=== PATIENT | male | born 1955 | race African-American/Black ===

== ENCOUNTER 2021-07-01 14:43 | Inpatient (IN) | payer OTHER ==
[2021-07-01] MEDS ORDERED: ONDANSETRON *ODT* 4 MG TABLET SL PRN (17:24)
[2021-07-01] MEDS ORDERED: MAG HYDROX/AL HYDROX/SIMETH 30 ML UNIT-DOSE CUP PO PRN (17:24)
[2021-07-01] MEDS ORDERED: MAGNESIUM HYDROX 2400MG/30ML ORAL SUSPENSION 30 ML CUP PO PRN (17:24)
[2021-07-01] MEDS ORDERED: IBUPROFEN 400 MG TABLET (FP) PO PRN (17:24)
[2021-07-01] MEDS ORDERED: MAGNESIUM CITRATE 300 ML BOTTLE PO PRN (17:24)
[2021-07-01] MEDS ORDERED: BISMUTH SUBSALICYLATE 524 MG/30 ML PO PRN (17:24)
[2021-07-01] MEDS ORDERED: MENTHOL/PHENOL 1 EACH UD MM PRN (17:24)
[2021-07-01] MEDS ORDERED: ACETAMINOPHEN 325 MG TABLET (FP) PO PRN ×2 (17:24)
[2021-07-01 19:28] VITALS: BMI 24.5
[2021-07-02] MEDS: THIAMINE HCL 100 MG TABLET (FP) PO SCH ×2 (02:13→22:27)
[2021-07-02] MEDS: MELATONIN 5 MG TABLETS PO SCH ×2 (02:14→22:26)
[2021-07-02] MEDS: PRENATAL VITAMINS W/ FOLIC ACID TABLET (FP) PO SCH (10:19)
[2021-07-02] MEDS: LORazepam 0.5 MG TABLET PO SCH ×3 (11:16→22:27)
[2021-07-02 13:07] LABS: HEMATOCRIT 39.4 % (35.4-49); HEMOGLOBIN 12.7 GM/dL (11.7-16.9); MCH 30.6 pg (25.7-33.7); MCHC 32.2 g/dl (32.0-35.9); MEAN CELL VOLUME 94.8 fl (80-96); MEAN PLT VOLUME 9.5 fl (7.5-11.1); PLATELET COUNT 289 10^3/uL (134-434); RBC 4.16 M/mm3 (4.00-5.60); RDW 14.2 % (11.9-15.9); WHITE BLOOD COUNT 4.8 K/mm3 (4.0-10.0)
[2021-07-02 13:20] LABS: BLOOD UREA NITROGEN 17.4 mg/dL (7-18); CREATININE 0.9 mg/dL (0.55-1.3)
[2021-07-02 13:21] LABS: BILIRUBIN,TOTAL 0.4 mg/dL (0.2-1); TOT PROT 6.4 g/dl (6.4-8.2)
[2021-07-02 13:22] LABS: CALCIUM 9.2 mg/dL (8.5-10.1)
[2021-07-02] MEDS: risperiDONE 2 MG TABLET PO SCH ×2 (15:08→22:27)
[2021-07-02] MEDS: BENZTROPINE MESYLATE 1 MG TABLET PO SCH (22:26)
[2021-07-02] MEDS: DIVALPROEX SODIUM 500 MG TABLET E.C. PO SCH (22:27)
[2021-07-02] MEDS: hydrOXYzine PAMOATE 25 MG CAPSULE (FP) PO PRN (22:29)
[2021-07-03] MEDS: LORazepam 0.5 MG TABLET PO SCH ×3 (05:52→23:46)
[2021-07-03] MEDS: PRENATAL VITAMINS W/ FOLIC ACID TABLET (FP) PO SCH (10:12)
[2021-07-03] MEDS: risperiDONE 2 MG TABLET PO SCH ×2 (10:13→22:14)
[2021-07-03] MEDS: hydrOXYzine PAMOATE 25 MG CAPSULE (FP) PO PRN ×3 (10:13→22:18)
[2021-07-03] MEDS: BENZTROPINE MESYLATE 1 MG TABLET PO SCH ×2 (10:13→22:15)
[2021-07-03] MEDS: METHOCARBAMOL 500 MG TABLET PO PRN (10:13)
[2021-07-03] MEDS: LORazepam 0.5 MG TABLET PO PRN ×2 (10:14→22:15)
[2021-07-03] MEDS: DIVALPROEX SODIUM 500 MG TABLET E.C. PO SCH (22:14)
[2021-07-03] MEDS: MELATONIN 5 MG TABLETS PO SCH (22:15)
[2021-07-03] MEDS: THIAMINE HCL 100 MG TABLET (FP) PO SCH (22:15)
[2021-07-04] MEDS: LORazepam 0.5 MG TABLET PO SCH ×2 (06:05→18:32)
[2021-07-04] MEDS: risperiDONE 2 MG TABLET PO SCH ×2 (10:35→22:34)
[2021-07-04] MEDS: PRENATAL VITAMINS W/ FOLIC ACID TABLET (FP) PO SCH (10:35)
[2021-07-04] MEDS: hydrOXYzine PAMOATE 25 MG CAPSULE (FP) PO PRN (10:36)
[2021-07-04] MEDS: BENZTROPINE MESYLATE 1 MG TABLET PO SCH ×2 (10:36→22:34)
[2021-07-04] MEDS: METHOCARBAMOL 500 MG TABLET PO PRN (10:36)
[2021-07-04] MEDS: DIVALPROEX SODIUM 500 MG TABLET E.C. PO SCH (22:35)
[2021-07-04] MEDS: THIAMINE HCL 100 MG TABLET (FP) PO SCH (22:35)
[2021-07-04] MEDS: MELATONIN 5 MG TABLETS PO SCH (22:35)
[2021-07-05] MEDS ORDERED: LORazepam 0.5 MG TABLET PO ONE (05:00)
[2021-07-05] MEDS: hydrOXYzine PAMOATE 25 MG CAPSULE (FP) PO PRN (10:31)
[2021-07-05] MEDS: BENZTROPINE MESYLATE 1 MG TABLET PO SCH (10:31)
[2021-07-05] MEDS: PRENATAL VITAMINS W/ FOLIC ACID TABLET (FP) PO SCH (10:31)
[2021-07-05] MEDS: METHOCARBAMOL 500 MG TABLET PO PRN (10:31)
[2021-07-05] MEDS: risperiDONE 2 MG TABLET PO SCH (10:32)
[2021-07-05 11:15] VITALS: BP 120/80; PULSE 94; TEMP 96.6
== END 2021-07-05 12:47 | disposition home or self-care (01) | DRG 774 ==
LOC: YASAS 14:43 → Y6N 20:41
PROVIDERS: ADMIT Allergy & Immunology; ATTEND Allergy & Immunology
PROC: HZ2ZZZZ Detoxification Services for Substance Abuse Treatment (ICD-10-PCS; principal; 2021-07-01)
DX: F10.230 Alcohol dependence with withdrawal, uncomplicated (principal); F14.20 Cocaine dependence, uncomplicated; F12.20 Cannabis dependence, uncomplicated; F17.213 Nicotine dependence, cigarettes, with withdrawal; F25.0 Schizoaffective disorder, bipolar type; Z62.810 Personal history of physical and sexual abuse in childhood; Z86.69 Personal history of other diseases of the nervous system and sense organs; Z56.0 Unemployment, unspecified
CPT/HCPCS: 36415; 80053; 85027; 86780; C9803; U0003; U0005

== ENCOUNTER 2021-10-19 17:08 | Inpatient (IN) | payer OTHER ==
[2021-10-19 20:03] VITALS: BMI 25.5
[2021-10-19] MEDS ORDERED: P-EPHED 60MG/TRIPROLIDI 2.5MG TABLET PO PRN (21:28)
[2021-10-19] MEDS ORDERED: MAG HYDROX/AL HYDROX/SIMETH 30 ML UNIT-DOSE CUP PO PRN (21:28)
[2021-10-19] MEDS ORDERED: MAGNESIUM CITRATE 300 ML BOTTLE PO PRN (21:28)
[2021-10-19] MEDS ORDERED: LOPERAMIDE HCL 2 MG CAPSULE PO PRN (21:28)
[2021-10-19] MEDS ORDERED: ONDANSETRON *ODT* 4 MG TABLET SL PRN (21:28)
[2021-10-19] MEDS ORDERED: ACETAMINOPHEN 325 MG TABLET (FP) PO PRN ×2 (21:28)
[2021-10-19] MEDS ORDERED: DICYCLOMINE HCL 10 MG CAPSULE PO PRN (21:28)
[2021-10-19] MEDS ORDERED: IBUPROFEN 400 MG TABLET (FP) PO PRN (21:28)
[2021-10-19] MEDS ORDERED: BENZOCAINE/MENTHOL (CHLORASEPTIC ) LOZENGE MM PRN (21:28)
[2021-10-19] MEDS ORDERED: MAGNESIUM HYDROX 2400MG/30ML ORAL SUSPENSION 30 ML CUP PO PRN (21:28)
[2021-10-19] MEDS ORDERED: BISMUTH SUBSALICYLATE 524 MG/30 ML PO PRN (21:28)
[2021-10-19] MEDS ORDERED: guaiFENesin 200 MG/10 ML 10 ML UNIT-DOSE CUPS PO PRN (21:28)
[2021-10-19] MEDS ORDERED: CALAMINE 8% TOPICAL LOTION 177 ML BOTTLE TP PRN (21:33)
[2021-10-20] MEDS: THIAMINE HCL 100 MG TABLET (FP) PO SCH ×2 (01:36→22:28)
[2021-10-20] MEDS: METHOCARBAMOL 500 MG TABLET PO PRN (03:15)
[2021-10-20] MEDS: MELATONIN 5 MG TABLETS PO PRN ×2 (03:16→22:28)
[2021-10-20] MEDS: hydrOXYzine PAMOATE 25 MG CAPSULE (FP) PO PRN ×4 (03:16→22:28)
[2021-10-20] MEDS ORDERED: LORazepam 1 MG TABLET PO PRN (09:20)
[2021-10-20] MEDS: PRENATAL VITAMINS W/ FOLIC ACID TABLET (FP) PO SCH (10:25)
[2021-10-20] MEDS: LORazepam 2 MG TABLET PO SCH ×3 (10:27→22:28)
[2021-10-20 11:32] LABS: HEMATOCRIT 38.8 % (35.4-49); HEMOGLOBIN 12.9 GM/dL (11.7-16.9); MCHC 33.2 g/dl (32.0-35.9); MEAN CELL VOLUME 93.6 fl (80-96); MEAN PLT VOLUME 9.3 fl (7.5-11.1); PLATELET COUNT 245 10^3/uL (134-434); RBC 4.14 M/mm3 (4.00-5.60); RDW 14.5 % (11.9-15.9); WHITE BLOOD COUNT 5.2 K/mm3 (4.0-10.0)
[2021-10-20 11:46] LABS: CALCIUM 8.8 mg/dL (8.5-10.1)
[2021-10-20 11:47] LABS: ALBUMIN 2.8 g/dl (3.4-5.0)
[2021-10-20 11:48] LABS: BLOOD UREA NITROGEN 14.1 mg/dL (7-18)
[2021-10-20 11:52] LABS: BILIRUBIN,TOTAL 0.6 mg/dL (0.2-1); TOT PROT 6.2 g/dl (6.4-8.2)
[2021-10-20] MEDS: risperiDONE 2 MG TABLET PO SCH (22:28)
[2021-10-21] MEDS: LORazepam 1 MG TABLET PO SCH ×4 (05:44→22:08)
[2021-10-21] MEDS: PRENATAL VITAMINS W/ FOLIC ACID TABLET (FP) PO SCH (10:07)
[2021-10-21] MEDS: hydrOXYzine PAMOATE 25 MG CAPSULE (FP) PO PRN ×3 (10:08→22:09)
[2021-10-21] MEDS: METHOCARBAMOL 500 MG TABLET PO PRN (17:56)
[2021-10-21] MEDS: MELATONIN 5 MG TABLETS PO PRN (22:07)
[2021-10-21] MEDS: DIVALPROEX SODIUM 250 MG TABLET E.C. PO SCH (22:08)
[2021-10-21] MEDS: risperiDONE 2 MG TABLET PO SCH (22:09)
[2021-10-21] MEDS: THIAMINE HCL 100 MG TABLET (FP) PO SCH (22:10)
[2021-10-22] MEDS ORDERED: LORazepam 0.5 MG TABLET PO PRN
[2021-10-22] MEDS: METHOCARBAMOL 500 MG TABLET PO PRN (05:42)
[2021-10-22] MEDS: LORazepam 0.5 MG TABLET PO SCH ×4 (05:42→22:10)
[2021-10-22] MEDS: DIVALPROEX SODIUM 250 MG TABLET E.C. PO SCH ×2 (10:17→22:09)
[2021-10-22] MEDS: PRENATAL VITAMINS W/ FOLIC ACID TABLET (FP) PO SCH (10:17)
[2021-10-22] MEDS: hydrOXYzine PAMOATE 25 MG CAPSULE (FP) PO PRN ×2 (18:11→22:09)
[2021-10-22 20:08] LABS: SARS-CoV-2 NAA Not Detected (Not Detected)
[2021-10-22] MEDS: MELATONIN 5 MG TABLETS PO PRN (22:09)
[2021-10-22] MEDS: THIAMINE HCL 100 MG TABLET (FP) PO SCH (22:09)
[2021-10-22] MEDS: risperiDONE 2 MG TABLET PO SCH (22:09)
[2021-10-23] MEDS ORDERED: LORazepam 0.5 MG TABLET PO ONE (05:00)
[2021-10-23 07:41] VITALS: TEMP 96.9
[2021-10-23 09:51] VITALS: BP 104/68; PULSE 106
[2021-10-23] MEDS: DIVALPROEX SODIUM 250 MG TABLET E.C. PO SCH (10:35)
[2021-10-23] MEDS: PRENATAL VITAMINS W/ FOLIC ACID TABLET (FP) PO SCH (10:35)
== END 2021-10-23 11:40 | disposition other institution (70) | DRG 775 ==
LOC: YASAS 17:08 → Y6N 22:20
PROVIDERS: ADMIT Allergy & Immunology; ATTEND Allergy & Immunology
PROC: HZ2ZZZZ Detoxification Services for Substance Abuse Treatment (ICD-10-PCS; principal; 2021-10-19)
DX: F10.230 Alcohol dependence with withdrawal, uncomplicated (principal); F12.20 Cannabis dependence, uncomplicated; F17.210 Nicotine dependence, cigarettes, uncomplicated; F19.282 Other psychoactive substance dependence with psychoactive substance-induced sleep disorder; F20.9 Schizophrenia, unspecified; R21 Rash and other nonspecific skin eruption; Z62.810 Personal history of physical and sexual abuse in childhood
CPT/HCPCS: 36415; 71045-TC-FY; 80053; 85027; 86780; C9803-CS; U0003; U0005

== ENCOUNTER 2021-10-23 12:34 | Inpatient (IN) | payer OTHER ==
[2021-10-23] MEDS ORDERED: MAGNESIUM HYDROX 2400MG/30ML ORAL SUSPENSION 30 ML CUP PO PRN (15:19)
[2021-10-23] MEDS ORDERED: BENZOCAINE/MENTHOL (CHLORASEPTIC ) LOZENGE MM PRN (15:19)
[2021-10-23] MEDS ORDERED: LOPERAMIDE HCL 2 MG CAPSULE PO PRN (15:19)
[2021-10-23] MEDS ORDERED: IBUPROFEN 400 MG TABLET (FP) PO PRN (15:19)
[2021-10-23] MEDS ORDERED: MAGNESIUM CITRATE 300 ML BOTTLE PO PRN (15:19)
[2021-10-23] MEDS ORDERED: P-EPHED 60MG/TRIPROLIDI 2.5MG TABLET PO PRN (15:19)
[2021-10-23] MEDS ORDERED: ACETAMINOPHEN 325 MG TABLET (FP) PO PRN (15:19)
[2021-10-23] MEDS: guaiFENesin 200 MG/10 ML 10 ML UNIT-DOSE CUPS PO PRN (17:15)
[2021-10-23] MEDS: hydrOXYzine PAMOATE 25 MG CAPSULE (FP) PO PRN ×2 (17:15→21:29)
[2021-10-23] MEDS: DIVALPROEX SODIUM 250 MG TABLET E.C. PO SCH (21:28)
[2021-10-23] MEDS: risperiDONE 2 MG TABLET PO SCH (21:29)
[2021-10-23] MEDS: MELATONIN 5 MG TABLETS PO SCH (21:29)
[2021-10-23] MEDS: THIAMINE HCL 100 MG TABLET (FP) PO SCH (21:29)
[2021-10-24] MEDS: PRENATAL VITAMINS W/ FOLIC ACID TABLET (FP) PO SCH (10:01)
[2021-10-24] MEDS: DIVALPROEX SODIUM 250 MG TABLET E.C. PO SCH ×2 (10:01→21:18)
[2021-10-24] MEDS: guaiFENesin 200 MG/10 ML 10 ML UNIT-DOSE CUPS PO PRN ×2 (10:02→21:19)
[2021-10-24] MEDS: hydrOXYzine PAMOATE 25 MG CAPSULE (FP) PO PRN (10:03)
[2021-10-24] MEDS: MELATONIN 5 MG TABLETS PO SCH (21:18)
[2021-10-24] MEDS: THIAMINE HCL 100 MG TABLET (FP) PO SCH (21:18)
[2021-10-24] MEDS: risperiDONE 2 MG TABLET PO SCH (21:18)
[2021-10-25] MEDS: PRENATAL VITAMINS W/ FOLIC ACID TABLET (FP) PO SCH (10:24)
[2021-10-25] MEDS: DIVALPROEX SODIUM 250 MG TABLET E.C. PO SCH ×2 (10:24→21:23)
[2021-10-25] MEDS: guaiFENesin 200 MG/10 ML 10 ML UNIT-DOSE CUPS PO PRN ×2 (10:26→18:37)
[2021-10-25] MEDS: hydrOXYzine PAMOATE 25 MG CAPSULE (FP) PO PRN ×2 (10:26→21:23)
[2021-10-25] MEDS: THIAMINE HCL 100 MG TABLET (FP) PO SCH (21:22)
[2021-10-25] MEDS: risperiDONE 2 MG TABLET PO SCH (21:22)
[2021-10-25] MEDS: MELATONIN 5 MG TABLETS PO SCH (21:22)
[2021-10-26] MEDS: DIVALPROEX SODIUM 250 MG TABLET E.C. PO SCH ×2 (09:54→21:41)
[2021-10-26] MEDS: PRENATAL VITAMINS W/ FOLIC ACID TABLET (FP) PO SCH (09:54)
[2021-10-26] MEDS: hydrOXYzine PAMOATE 25 MG CAPSULE (FP) PO PRN ×2 (09:57→21:42)
[2021-10-26] MEDS: guaiFENesin 200 MG/10 ML 10 ML UNIT-DOSE CUPS PO PRN ×2 (09:57→21:43)
[2021-10-26] MEDS: risperiDONE 2 MG TABLET PO SCH (21:41)
[2021-10-26] MEDS: THIAMINE HCL 100 MG TABLET (FP) PO SCH (21:42)
[2021-10-26] MEDS: MELATONIN 5 MG TABLETS PO SCH (21:42)
[2021-10-27] MEDS: PRENATAL VITAMINS W/ FOLIC ACID TABLET (FP) PO SCH (10:16)
[2021-10-27] MEDS: guaiFENesin 200 MG/10 ML 10 ML UNIT-DOSE CUPS PO PRN ×2 (10:16→21:35)
[2021-10-27] MEDS: DIVALPROEX SODIUM 250 MG TABLET E.C. PO SCH ×2 (10:16→21:34)
[2021-10-27] MEDS: hydrOXYzine PAMOATE 25 MG CAPSULE (FP) PO PRN ×2 (10:16→21:35)
[2021-10-27 14:09] LABS: SARS-CoV-2 NAA Not Detected (Not Detected)
[2021-10-27] MEDS: THIAMINE HCL 100 MG TABLET (FP) PO SCH (21:33)
[2021-10-27] MEDS: MELATONIN 5 MG TABLETS PO SCH (21:33)
[2021-10-27] MEDS: risperiDONE 2 MG TABLET PO SCH (21:34)
[2021-10-28] MEDS: guaiFENesin 200 MG/10 ML 10 ML UNIT-DOSE CUPS PO PRN ×2 (09:57→21:21)
[2021-10-28] MEDS: PRENATAL VITAMINS W/ FOLIC ACID TABLET (FP) PO SCH (09:57)
[2021-10-28] MEDS: hydrOXYzine PAMOATE 25 MG CAPSULE (FP) PO PRN ×2 (09:57→21:21)
[2021-10-28] MEDS: DIVALPROEX SODIUM 250 MG TABLET E.C. PO SCH ×2 (09:58→21:20)
[2021-10-28] MEDS ORDERED: HALOPERIDOL DECANOATE 500 MG/5ML MDV IM ONE (11:18)
[2021-10-28] MEDS ORDERED: BENZTROPINE MESYLATE 1 MG TABLET PO ONE (11:19)
[2021-10-28] MEDS: risperiDONE 2 MG TABLET PO SCH (21:20)
[2021-10-28] MEDS: MELATONIN 5 MG TABLETS PO SCH (21:20)
[2021-10-28] MEDS: THIAMINE HCL 100 MG TABLET (FP) PO SCH (21:20)
[2021-10-28] MEDS: BENZTROPINE MESYLATE 1 MG TABLET PO SCH (21:21)
[2021-10-29] MEDS: guaiFENesin 200 MG/10 ML 10 ML UNIT-DOSE CUPS PO PRN ×2 (10:14→21:57)
[2021-10-29] MEDS: PRENATAL VITAMINS W/ FOLIC ACID TABLET (FP) PO SCH (10:14)
[2021-10-29] MEDS: BENZTROPINE MESYLATE 1 MG TABLET PO SCH ×2 (10:15→21:55)
[2021-10-29] MEDS: NALTREXONE HCL 50 MG TABLET PO SCH (10:15)
[2021-10-29] MEDS: hydrOXYzine PAMOATE 25 MG CAPSULE (FP) PO PRN (10:15)
[2021-10-29] MEDS: DIVALPROEX SODIUM 250 MG TABLET E.C. PO SCH ×2 (10:15→21:54)
[2021-10-29] MEDS: risperiDONE 2 MG TABLET PO SCH (21:55)
[2021-10-29] MEDS: MELATONIN 5 MG TABLETS PO SCH (21:55)
[2021-10-29] MEDS: THIAMINE HCL 100 MG TABLET (FP) PO SCH (21:55)
[2021-10-30] MEDS: NALTREXONE HCL 50 MG TABLET PO SCH (09:16)
[2021-10-30] MEDS: PRENATAL VITAMINS W/ FOLIC ACID TABLET (FP) PO SCH (09:16)
[2021-10-30] MEDS: BENZTROPINE MESYLATE 1 MG TABLET PO SCH ×2 (09:16→21:12)
[2021-10-30] MEDS: DIVALPROEX SODIUM 250 MG TABLET E.C. PO SCH ×2 (09:16→21:11)
[2021-10-30] MEDS: guaiFENesin 200 MG/10 ML 10 ML UNIT-DOSE CUPS PO PRN (09:19)
[2021-10-30] MEDS: MELATONIN 5 MG TABLETS PO SCH (21:11)
[2021-10-30] MEDS: risperiDONE 2 MG TABLET PO SCH (21:11)
[2021-10-30] MEDS: THIAMINE HCL 100 MG TABLET (FP) PO SCH (21:11)
[2021-10-31] MEDS: PRENATAL VITAMINS W/ FOLIC ACID TABLET (FP) PO SCH (10:54)
[2021-10-31] MEDS: guaiFENesin 200 MG/10 ML 10 ML UNIT-DOSE CUPS PO PRN ×2 (10:55→21:29)
[2021-10-31] MEDS: BENZTROPINE MESYLATE 1 MG TABLET PO SCH ×2 (10:55→21:27)
[2021-10-31] MEDS: DIVALPROEX SODIUM 250 MG TABLET E.C. PO SCH ×2 (10:55→21:27)
[2021-10-31] MEDS: NALTREXONE HCL 50 MG TABLET PO SCH (10:55)
[2021-10-31] MEDS: MELATONIN 5 MG TABLETS PO SCH (21:27)
[2021-10-31] MEDS: risperiDONE 2 MG TABLET PO SCH (21:27)
[2021-10-31] MEDS: THIAMINE HCL 100 MG TABLET (FP) PO SCH (21:28)
[2021-11-01] MEDS: DIVALPROEX SODIUM 250 MG TABLET E.C. PO SCH ×2 (10:12→21:39)
[2021-11-01] MEDS: NALTREXONE HCL 50 MG TABLET PO SCH (10:13)
[2021-11-01] MEDS: guaiFENesin 200 MG/10 ML 10 ML UNIT-DOSE CUPS PO PRN ×2 (10:13→21:40)
[2021-11-01] MEDS: BENZTROPINE MESYLATE 1 MG TABLET PO SCH ×2 (10:13→21:38)
[2021-11-01] MEDS: PRENATAL VITAMINS W/ FOLIC ACID TABLET (FP) PO SCH (10:13)
[2021-11-01] MEDS: hydrOXYzine PAMOATE 25 MG CAPSULE (FP) PO PRN ×2 (10:15→21:40)
[2021-11-01] MEDS: risperiDONE 2 MG TABLET PO SCH (21:39)
[2021-11-01] MEDS: MELATONIN 5 MG TABLETS PO SCH (21:39)
[2021-11-01] MEDS: THIAMINE HCL 100 MG TABLET (FP) PO SCH (21:39)
[2021-11-02] MEDS: MAG HYDROX/AL HYDROX/SIMETH 30 ML UNIT-DOSE CUP PO PRN (03:14)
[2021-11-02] MEDS: NALTREXONE HCL 50 MG TABLET PO SCH (10:15)
[2021-11-02] MEDS: DIVALPROEX SODIUM 250 MG TABLET E.C. PO SCH ×2 (10:15→21:40)
[2021-11-02] MEDS: PRENATAL VITAMINS W/ FOLIC ACID TABLET (FP) PO SCH (10:15)
[2021-11-02] MEDS: BENZTROPINE MESYLATE 1 MG TABLET PO SCH ×2 (10:15→21:40)
[2021-11-02] MEDS: hydrOXYzine PAMOATE 25 MG CAPSULE (FP) PO PRN (10:15)
[2021-11-02] MEDS: guaiFENesin 200 MG/10 ML 10 ML UNIT-DOSE CUPS PO PRN ×2 (10:15→21:42)
[2021-11-02] MEDS: risperiDONE 2 MG TABLET PO SCH (21:40)
[2021-11-02] MEDS: MELATONIN 5 MG TABLETS PO SCH (21:41)
[2021-11-02] MEDS: THIAMINE HCL 100 MG TABLET (FP) PO SCH (21:41)
[2021-11-03] MEDS: PRENATAL VITAMINS W/ FOLIC ACID TABLET (FP) PO SCH (10:02)
[2021-11-03] MEDS: NALTREXONE HCL 50 MG TABLET PO SCH (10:02)
[2021-11-03] MEDS: DIVALPROEX SODIUM 250 MG TABLET E.C. PO SCH ×2 (10:02→21:27)
[2021-11-03] MEDS: BENZTROPINE MESYLATE 1 MG TABLET PO SCH ×2 (10:02→21:27)
[2021-11-03] MEDS: MELATONIN 5 MG TABLETS PO SCH (21:27)
[2021-11-03] MEDS: THIAMINE HCL 100 MG TABLET (FP) PO SCH (21:27)
[2021-11-03] MEDS: risperiDONE 2 MG TABLET PO SCH (21:27)
[2021-11-03] MEDS: guaiFENesin 200 MG/10 ML 10 ML UNIT-DOSE CUPS PO PRN (21:28)
[2021-11-04] MEDS: PRENATAL VITAMINS W/ FOLIC ACID TABLET (FP) PO SCH (10:26)
[2021-11-04] MEDS: NALTREXONE HCL 50 MG TABLET PO SCH (10:26)
[2021-11-04] MEDS: guaiFENesin 200 MG/10 ML 10 ML UNIT-DOSE CUPS PO PRN ×2 (10:27→21:29)
[2021-11-04] MEDS: DIVALPROEX SODIUM 250 MG TABLET E.C. PO SCH ×2 (10:27→21:28)
[2021-11-04] MEDS: BENZTROPINE MESYLATE 1 MG TABLET PO SCH ×2 (10:27→21:27)
[2021-11-04] MEDS: risperiDONE 2 MG TABLET PO SCH (21:27)
[2021-11-04] MEDS: MELATONIN 5 MG TABLETS PO SCH (21:28)
[2021-11-04] MEDS: THIAMINE HCL 100 MG TABLET (FP) PO SCH (21:29)
[2021-11-04] MEDS: MAG HYDROX/AL HYDROX/SIMETH 30 ML UNIT-DOSE CUP PO PRN (23:49)
[2021-11-05] MEDS: guaiFENesin 200 MG/10 ML 10 ML UNIT-DOSE CUPS PO PRN (10:17)
[2021-11-05] MEDS: PRENATAL VITAMINS W/ FOLIC ACID TABLET (FP) PO SCH (10:17)
[2021-11-05] MEDS: BENZTROPINE MESYLATE 1 MG TABLET PO SCH ×2 (10:17→21:25)
[2021-11-05] MEDS: NALTREXONE HCL 50 MG TABLET PO SCH (10:17)
[2021-11-05] MEDS: DIVALPROEX SODIUM 250 MG TABLET E.C. PO SCH ×2 (10:17→21:25)
[2021-11-05] MEDS: hydrOXYzine PAMOATE 25 MG CAPSULE (FP) PO PRN (10:17)
[2021-11-05] MEDS: risperiDONE 2 MG TABLET PO SCH (21:24)
[2021-11-05] MEDS: MELATONIN 5 MG TABLETS PO SCH (21:24)
[2021-11-05] MEDS: THIAMINE HCL 100 MG TABLET (FP) PO SCH (21:25)
[2021-11-06] MEDS: DIVALPROEX SODIUM 250 MG TABLET E.C. PO SCH ×2 (10:46→21:33)
[2021-11-06] MEDS: BENZTROPINE MESYLATE 1 MG TABLET PO SCH ×2 (10:46→21:32)
[2021-11-06] MEDS: hydrOXYzine PAMOATE 25 MG CAPSULE (FP) PO PRN (10:46)
[2021-11-06] MEDS: PRENATAL VITAMINS W/ FOLIC ACID TABLET (FP) PO SCH (10:46)
[2021-11-06] MEDS: NALTREXONE HCL 50 MG TABLET PO SCH (10:46)
[2021-11-06] MEDS: guaiFENesin 200 MG/10 ML 10 ML UNIT-DOSE CUPS PO PRN (10:47)
[2021-11-06] MEDS: risperiDONE 2 MG TABLET PO SCH (21:32)
[2021-11-06] MEDS: THIAMINE HCL 100 MG TABLET (FP) PO SCH (21:33)
[2021-11-06] MEDS: MELATONIN 5 MG TABLETS PO SCH (21:33)
[2021-11-07] MEDS: BENZTROPINE MESYLATE 1 MG TABLET PO SCH ×2 (09:20→21:03)
[2021-11-07] MEDS: DIVALPROEX SODIUM 250 MG TABLET E.C. PO SCH ×2 (09:20→21:03)
[2021-11-07] MEDS: NALTREXONE HCL 50 MG TABLET PO SCH (09:20)
[2021-11-07] MEDS: PRENATAL VITAMINS W/ FOLIC ACID TABLET (FP) PO SCH (09:20)
[2021-11-07] MEDS: guaiFENesin 200 MG/10 ML 10 ML UNIT-DOSE CUPS PO PRN (09:21)
[2021-11-07] MEDS: hydrOXYzine PAMOATE 25 MG CAPSULE (FP) PO PRN (09:21)
[2021-11-07] MEDS: THIAMINE HCL 100 MG TABLET (FP) PO SCH (21:03)
[2021-11-07] MEDS: MELATONIN 5 MG TABLETS PO SCH (21:03)
[2021-11-07] MEDS: risperiDONE 2 MG TABLET PO SCH (21:03)
[2021-11-07] MEDS: MAG HYDROX/AL HYDROX/SIMETH 30 ML UNIT-DOSE CUP PO PRN (23:31)
[2021-11-08] MEDS: BENZTROPINE MESYLATE 1 MG TABLET PO SCH ×2 (09:33→21:46)
[2021-11-08] MEDS: DIVALPROEX SODIUM 250 MG TABLET E.C. PO SCH ×2 (09:33→21:46)
[2021-11-08] MEDS: NALTREXONE HCL 50 MG TABLET PO SCH (09:33)
[2021-11-08] MEDS: PRENATAL VITAMINS W/ FOLIC ACID TABLET (FP) PO SCH (09:33)
[2021-11-08] MEDS: guaiFENesin 200 MG/10 ML 10 ML UNIT-DOSE CUPS PO PRN (09:33)
[2021-11-08] MEDS: hydrOXYzine PAMOATE 25 MG CAPSULE (FP) PO PRN (09:34)
[2021-11-08] MEDS: risperiDONE 2 MG TABLET PO SCH (21:46)
[2021-11-08] MEDS: MELATONIN 5 MG TABLETS PO SCH (21:46)
[2021-11-08] MEDS: THIAMINE HCL 100 MG TABLET (FP) PO SCH (21:46)
[2021-11-09] MEDS: MAG HYDROX/AL HYDROX/SIMETH 30 ML UNIT-DOSE CUP PO PRN ×2 (00:52→16:29)
[2021-11-09] MEDS: PRENATAL VITAMINS W/ FOLIC ACID TABLET (FP) PO SCH (10:06)
[2021-11-09] MEDS: BENZTROPINE MESYLATE 1 MG TABLET PO SCH ×2 (10:06→21:44)
[2021-11-09] MEDS: DIVALPROEX SODIUM 250 MG TABLET E.C. PO SCH ×2 (10:06→21:45)
[2021-11-09] MEDS: NALTREXONE HCL 50 MG TABLET PO SCH (10:06)
[2021-11-09] MEDS: hydrOXYzine PAMOATE 25 MG CAPSULE (FP) PO PRN (16:28)
[2021-11-09] MEDS: risperiDONE 2 MG TABLET PO SCH (21:44)
[2021-11-09] MEDS: THIAMINE HCL 100 MG TABLET (FP) PO SCH (21:45)
[2021-11-09] MEDS: MELATONIN 5 MG TABLETS PO SCH (21:45)
[2021-11-09] MEDS: guaiFENesin 200 MG/10 ML 10 ML UNIT-DOSE CUPS PO PRN (21:56)
[2021-11-10 06:47] VITALS: BP 109/75; PULSE 101; TEMP 98
[2021-11-10] MEDS: NALTREXONE HCL 50 MG TABLET PO SCH (10:28)
[2021-11-10] MEDS: DIVALPROEX SODIUM 250 MG TABLET E.C. PO SCH (10:28)
[2021-11-10] MEDS: BENZTROPINE MESYLATE 1 MG TABLET PO SCH (10:28)
[2021-11-10] MEDS: PRENATAL VITAMINS W/ FOLIC ACID TABLET (FP) PO SCH (10:28)
== END 2021-11-10 11:30 | disposition home or self-care (01) | DRG 772 ==
LOC: YASAS 12:34 → Y3W 12:35
PROVIDERS: ADMIT Allergy & Immunology; ATTEND Psychiatry & Neurology Pain Medicine
PROC: HZ42ZZZ Group Counseling for Substance Abuse Treatment, Cognitive-Behavioral (ICD-10-PCS; principal; 2021-10-23)
DX: F10.20 Alcohol dependence, uncomplicated (principal); F12.20 Cannabis dependence, uncomplicated; F17.210 Nicotine dependence, cigarettes, uncomplicated; F20.9 Schizophrenia, unspecified; F19.282 Other psychoactive substance dependence with psychoactive substance-induced sleep disorder; Z62.810 Personal history of physical and sexual abuse in childhood
CPT/HCPCS: 80164; C9803-CS; U0003; U0005

== ENCOUNTER 2021-12-13 08:09 | Inpatient (IN) | payer OTHER ==
[2021-12-13 08:53] VITALS: BMI 22.8
[2021-12-13] MEDS ORDERED: ONDANSETRON *ODT* 4 MG TABLET SL PRN (09:20)
[2021-12-13] MEDS ORDERED: IBUPROFEN 400 MG TABLET (FP) PO PRN (09:20)
[2021-12-13] MEDS ORDERED: IBUPROFEN 600 MG TABLET (FP) PO PRN (09:20)
[2021-12-13] MEDS ORDERED: NICOTINE 10 MG CARTRIDGE (INHALER) IH PRN (09:20)
[2021-12-13] MEDS ORDERED: MAG HYDROX/AL HYDROX/SIMETH 30 ML UNIT-DOSE CUP PO PRN (09:20)
[2021-12-13] MEDS ORDERED: chlordiazePOXIDE HCL 25 MG CAPSULE PO PRN (09:20)
[2021-12-13] MEDS ORDERED: ACETAMINOPHEN 325 MG TABLET (FP) PO PRN ×2 (09:20)
[2021-12-13] MEDS ORDERED: METHOCARBAMOL 500 MG TABLET PO PRN (09:20)
[2021-12-13] MEDS ORDERED: LOPERAMIDE HCL 2 MG CAPSULE PO PRN (09:20)
[2021-12-13] MEDS ORDERED: BENZOCAINE/MENTHOL (CHLORASEPTIC ) LOZENGE MM PRN (09:20)
[2021-12-13] MEDS ORDERED: MAGNESIUM HYDROX 2400MG/30ML ORAL SUSPENSION 30 ML CUP PO PRN (09:20)
[2021-12-13] MEDS ORDERED: DICYCLOMINE HCL 10 MG CAPSULE PO PRN (09:20)
[2021-12-13] MEDS ORDERED: BISMUTH SUBSALICYLATE 524 MG/30 ML PO PRN (09:20)
[2021-12-13] MEDS ORDERED: MAGNESIUM CITRATE 300 ML BOTTLE PO PRN (09:20)
[2021-12-13] MEDS: chlordiazePOXIDE HCL 25 MG CAPSULE PO SCH ×3 (10:21→22:35)
[2021-12-13] MEDS: hydrOXYzine PAMOATE 25 MG CAPSULE (FP) PO SCH ×4 (10:21→22:34)
[2021-12-13] MEDS: PRENATAL VITAMINS W/ FOLIC ACID TABLET (FP) PO SCH (10:22)
[2021-12-13] MEDS: MELATONIN 5 MG TABLETS PO SCH (22:32)
[2021-12-13] MEDS: BENZTROPINE MESYLATE 1 MG TABLET PO SCH (22:33)
[2021-12-13] MEDS: THIAMINE HCL 100 MG TABLET (FP) PO SCH (22:33)
[2021-12-13] MEDS: risperiDONE 2 MG TABLET PO SCH (22:33)
[2021-12-13] MEDS: DIVALPROEX SODIUM 250 MG TABLET E.C. PO SCH (22:33)
[2021-12-14] MEDS: chlordiazePOXIDE HCL 25 MG CAPSULE PO SCH ×4 (06:07→22:01)
[2021-12-14] MEDS: hydrOXYzine PAMOATE 25 MG CAPSULE (FP) PO SCH ×5 (06:07→22:01)
[2021-12-14] MEDS: PRENATAL VITAMINS W/ FOLIC ACID TABLET (FP) PO SCH (10:20)
[2021-12-14] MEDS: DIVALPROEX SODIUM 250 MG TABLET E.C. PO SCH ×2 (10:20→22:01)
[2021-12-14] MEDS: BENZTROPINE MESYLATE 1 MG TABLET PO SCH ×2 (10:20→22:01)
[2021-12-14] MEDS: THIAMINE HCL 100 MG TABLET (FP) PO SCH (22:01)
[2021-12-14] MEDS: MELATONIN 5 MG TABLETS PO SCH (22:01)
[2021-12-14] MEDS: risperiDONE 2 MG TABLET PO SCH (22:01)
[2021-12-15] MEDS: chlordiazePOXIDE HCL 25 MG CAPSULE PO SCH ×4 (06:02→22:43)
[2021-12-15] MEDS: hydrOXYzine PAMOATE 25 MG CAPSULE (FP) PO SCH ×5 (06:04→22:43)
[2021-12-15] MEDS: DIVALPROEX SODIUM 250 MG TABLET E.C. PO SCH ×2 (10:17→22:43)
[2021-12-15] MEDS: PRENATAL VITAMINS W/ FOLIC ACID TABLET (FP) PO SCH (10:17)
[2021-12-15] MEDS: BENZTROPINE MESYLATE 1 MG TABLET PO SCH ×2 (10:17→22:43)
[2021-12-15 14:27] LABS: HEMATOCRIT 41.4 % (35.4-49); HEMOGLOBIN 13.5 GM/dL (11.7-16.9); MCH 31.3 pg (25.7-33.7); MCHC 32.7 g/dl (32.0-35.9); MEAN CELL VOLUME 95.7 fl (80-96); MEAN PLT VOLUME 9.5 fl (7.5-11.1); PLATELET COUNT 306 10^3/uL (134-434); RBC 4.32 M/mm3 (4.00-5.60); RDW 15.1 % (11.9-15.9); WHITE BLOOD COUNT 4.7 K/mm3 (4.0-10.0)
[2021-12-15] MEDS: LACTULOSE 20 GM/30 ML UDC (FOR ORAL USE ONLY) PO SCH ×2 (16:01→22:43)
[2021-12-15 22:21] LABS: BLOOD UREA NITROGEN 19.2 mg/dL (7-18); CALCIUM 8.9 mg/dL (8.5-10.1)
[2021-12-15 22:22] LABS: ALBUMIN 3.3 g/dl (3.4-5.0)
[2021-12-15 22:24] LABS: CREATININE 1.1 mg/dL (0.55-1.3)
[2021-12-15 22:26] LABS: TOT PROT 7.4 g/dl (6.4-8.2)
[2021-12-15 22:39] LABS: BILIRUBIN,TOTAL 0.3 mg/dL (0.2-1)
[2021-12-15] MEDS: MELATONIN 5 MG TABLETS PO SCH (22:46)
[2021-12-15] MEDS: THIAMINE HCL 100 MG TABLET (FP) PO SCH (23:10)
[2021-12-15] MEDS: risperiDONE 2 MG TABLET PO SCH (23:10)
[2021-12-16] MEDS ORDERED: chlordiazePOXIDE HCL 10 MG CAPSULE PO PRN
[2021-12-16] MEDS: LACTULOSE 20 GM/30 ML UDC (FOR ORAL USE ONLY) PO SCH ×4 (07:29→23:42)
[2021-12-16] MEDS: hydrOXYzine PAMOATE 25 MG CAPSULE (FP) PO SCH ×5 (07:29→23:43)
[2021-12-16] MEDS: chlordiazePOXIDE HCL 10 MG CAPSULE PO SCH ×4 (07:30→23:42)
[2021-12-16] MEDS: BENZTROPINE MESYLATE 1 MG TABLET PO SCH ×2 (10:44→23:42)
[2021-12-16] MEDS: DIVALPROEX SODIUM 250 MG TABLET E.C. PO SCH ×2 (10:44→23:42)
[2021-12-16] MEDS: PRENATAL VITAMINS W/ FOLIC ACID TABLET (FP) PO SCH (10:45)
[2021-12-16] MEDS: MELATONIN 5 MG TABLETS PO SCH (23:42)
[2021-12-16] MEDS: THIAMINE HCL 100 MG TABLET (FP) PO SCH (23:43)
[2021-12-16] MEDS: risperiDONE 2 MG TABLET PO SCH (23:43)
[2021-12-17] MEDS: chlordiazePOXIDE HCL 10 MG CAPSULE PO SCH ×2 (06:07→17:52)
[2021-12-17] MEDS: hydrOXYzine PAMOATE 25 MG CAPSULE (FP) PO SCH ×5 (06:08→22:32)
[2021-12-17] MEDS: DIVALPROEX SODIUM 250 MG TABLET E.C. PO SCH ×2 (11:14→22:33)
[2021-12-17] MEDS: BENZTROPINE MESYLATE 1 MG TABLET PO SCH ×2 (11:15→22:33)
[2021-12-17] MEDS: PRENATAL VITAMINS W/ FOLIC ACID TABLET (FP) PO SCH (11:16)
[2021-12-17] MEDS: LACTULOSE 20 GM/30 ML UDC (FOR ORAL USE ONLY) PO SCH ×4 (11:16→22:33)
[2021-12-17] MEDS: risperiDONE 2 MG TABLET PO SCH (22:33)
[2021-12-17] MEDS: THIAMINE HCL 100 MG TABLET (FP) PO SCH (22:33)
[2021-12-17] MEDS: MELATONIN 5 MG TABLETS PO SCH (22:33)
[2021-12-18] MEDS ORDERED: chlordiazePOXIDE HCL 10 MG CAPSULE PO ONE (05:00)
[2021-12-18] MEDS: hydrOXYzine PAMOATE 25 MG CAPSULE (FP) PO SCH ×5 (07:39→22:41)
[2021-12-18] MEDS: LACTULOSE 20 GM/30 ML UDC (FOR ORAL USE ONLY) PO SCH ×4 (11:12→22:40)
[2021-12-18] MEDS: BENZTROPINE MESYLATE 1 MG TABLET PO SCH ×2 (11:12→22:41)
[2021-12-18] MEDS: DIVALPROEX SODIUM 250 MG TABLET E.C. PO SCH ×2 (11:12→22:40)
[2021-12-18] MEDS: PRENATAL VITAMINS W/ FOLIC ACID TABLET (FP) PO SCH (11:13)
[2021-12-18] MEDS: THIAMINE HCL 100 MG TABLET (FP) PO SCH (22:41)
[2021-12-18] MEDS: risperiDONE 2 MG TABLET PO SCH (22:41)
[2021-12-18] MEDS: MELATONIN 5 MG TABLETS PO SCH (22:41)
[2021-12-19] MEDS: hydrOXYzine PAMOATE 25 MG CAPSULE (FP) PO SCH (07:06)
[2021-12-19] MEDS: BENZTROPINE MESYLATE 1 MG TABLET PO SCH ×2 (11:51→22:30)
[2021-12-19] MEDS: LACTULOSE 20 GM/30 ML UDC (FOR ORAL USE ONLY) PO SCH ×4 (11:51→22:29)
[2021-12-19] MEDS: DIVALPROEX SODIUM 250 MG TABLET E.C. PO SCH ×2 (11:52→22:29)
[2021-12-19] MEDS: PRENATAL VITAMINS W/ FOLIC ACID TABLET (FP) PO SCH (11:52)
[2021-12-19 18:20] LABS: URINE APPEARANCE CLEAR; URINE BILIRUBIN NEGATIVE (NEGATIVE); URINE COLOR YELLOW; URINE GLUCOSE (UA) 2+ (NEGATIVE); URINE KETONE NEGATIVE (NEGATIVE); URINE LEUK ESTERASE NEGATIVE (NEGATIVE); URINE NITRITE NEGATIVE (NEGATIVE); URINE PROTEIN NEGATIVE (NEGATIVE); URINE UROBILINOGEN 0.2 mg/dL (0.2-1.0)
[2021-12-19] MEDS: MELATONIN 5 MG TABLETS PO SCH (22:29)
[2021-12-19] MEDS: risperiDONE 2 MG TABLET PO SCH (22:30)
[2021-12-19] MEDS: THIAMINE HCL 100 MG TABLET (FP) PO SCH (22:30)
[2021-12-20] MEDS: DIVALPROEX SODIUM 250 MG TABLET E.C. PO SCH ×2 (10:51→22:23)
[2021-12-20] MEDS: BENZTROPINE MESYLATE 1 MG TABLET PO SCH ×2 (10:51→22:23)
[2021-12-20] MEDS: PRENATAL VITAMINS W/ FOLIC ACID TABLET (FP) PO SCH (10:51)
[2021-12-20] MEDS: LACTULOSE 20 GM/30 ML UDC (FOR ORAL USE ONLY) PO SCH ×4 (10:52→22:22)
[2021-12-20] MEDS: MELATONIN 5 MG TABLETS PO SCH (22:22)
[2021-12-20] MEDS: risperiDONE 2 MG TABLET PO SCH (22:23)
[2021-12-20] MEDS: THIAMINE HCL 100 MG TABLET (FP) PO SCH (22:23)
[2021-12-21] MEDS: PRENATAL VITAMINS W/ FOLIC ACID TABLET (FP) PO SCH (10:14)
[2021-12-21] MEDS: BENZTROPINE MESYLATE 1 MG TABLET PO SCH ×2 (10:14→23:00)
[2021-12-21] MEDS: LACTULOSE 20 GM/30 ML UDC (FOR ORAL USE ONLY) PO SCH ×3 (10:14→22:57)
[2021-12-21] MEDS: DIVALPROEX SODIUM 250 MG TABLET E.C. PO SCH ×2 (10:14→23:00)
[2021-12-21] MEDS: risperiDONE 2 MG TABLET PO SCH (22:58)
[2021-12-21] MEDS: THIAMINE HCL 100 MG TABLET (FP) PO SCH (22:58)
[2021-12-21] MEDS: MELATONIN 5 MG TABLETS PO SCH (22:58)
[2021-12-22] MEDS: LACTULOSE 20 GM/30 ML UDC (FOR ORAL USE ONLY) PO SCH ×2 (06:14→14:19)
[2021-12-22] MEDS: PRENATAL VITAMINS W/ FOLIC ACID TABLET (FP) PO SCH (10:33)
[2021-12-22] MEDS: DIVALPROEX SODIUM 250 MG TABLET E.C. PO SCH (10:34)
[2021-12-22] MEDS: BENZTROPINE MESYLATE 1 MG TABLET PO SCH (10:34)
[2021-12-22 12:48] VITALS: BP 141/99; PULSE 93; TEMP 97.7
== END 2021-12-22 02:30 | disposition other institution (70) | DRG 775 ==
LOC: SUATTDRO 08:09 → YASAS 08:09 → Y3N 09:28
PROVIDERS: ADMIT Allergy & Immunology; ATTEND Surgery
PROC: HZ2ZZZZ Detoxification Services for Substance Abuse Treatment (ICD-10-PCS; principal; 2021-12-13)
DX: F10.230 Alcohol dependence with withdrawal, uncomplicated (principal); F12.20 Cannabis dependence, uncomplicated; F17.210 Nicotine dependence, cigarettes, uncomplicated; F19.282 Other psychoactive substance dependence with psychoactive substance-induced sleep disorder; F20.9 Schizophrenia, unspecified; E72.20 Disorder of urea cycle metabolism, unspecified; Z62.810 Personal history of physical and sexual abuse in childhood
CPT/HCPCS: 36415; 80053; 80164; 81003; 82140; 85027; 86780; 87811; C9803-CS; U0003; U0005

== ENCOUNTER 2022-07-27 18:47 | Inpatient (IN) | payer OTHER ==
[2022-07-27 22:02] VITALS: BMI 25.0
[2022-07-27] MEDS ORDERED: guaiFENesin 200 MG/10 ML 10 ML UNIT-DOSE CUPS PO PRN (22:22)
[2022-07-27] MEDS ORDERED: MAG HYDROX/AL HYDROX/SIMETH 30 ML UNIT-DOSE CUP PO PRN (22:22)
[2022-07-27] MEDS ORDERED: ONDANSETRON *ODT* 4 MG TABLET SL PRN (22:22)
[2022-07-27] MEDS ORDERED: ACETAMINOPHEN 325 MG TABLET (FP) PO PRN ×2 (22:22)
[2022-07-27] MEDS ORDERED: NICOTINE 7 MG/24 HOURS TOPICAL PATCH TD PRN (22:22)
[2022-07-27] MEDS ORDERED: P-EPHED 60MG/TRIPROLIDI 2.5MG TABLET PO PRN (22:22)
[2022-07-27] MEDS ORDERED: IBUPROFEN 400 MG TABLET (FP) PO PRN (22:22)
[2022-07-27] MEDS ORDERED: MAGNESIUM HYDROX 2400MG/30ML ORAL SUSPENSION 30 ML CUP PO PRN (22:22)
[2022-07-27] MEDS ORDERED: BENZOCAINE/MENTHOL (CHLORASEPTIC ) LOZENGE MM PRN (22:22)
[2022-07-27] MEDS ORDERED: POLYETHYLENE GLYCOL (HEALTHYLAX) 3350 17 GM PACKET PO PRN (22:22)
[2022-07-27] MEDS ORDERED: DICYCLOMINE HCL 10 MG CAPSULE PO PRN (22:22)
[2022-07-27] MEDS ORDERED: BISMUTH SUBSALICYLATE 524 MG/30 ML PO PRN (22:22)
[2022-07-27] MEDS ORDERED: LOPERAMIDE HCL 2 MG CAPSULE PO PRN (22:22)
[2022-07-27] MEDS ORDERED: diazePAM 5 MG TABLET PO PRN (22:24)
[2022-07-28] MEDS: BACITRACIN ZINC 15 GM TUBE TOPICAL OINTMENT TP SCH ×2 (01:10→11:43)
[2022-07-28] MEDS: hydrOXYzine PAMOATE 25 MG CAPSULE (FP) PO PRN (10:22)
[2022-07-28] MEDS: PRENATAL VITAMINS W/ FOLIC ACID TABLET (FP) PO SCH (10:23)
[2022-07-28] MEDS ORDERED: chlordiazePOXIDE HCL 25 MG CAPSULE PO PRN (10:46)
[2022-07-28] MEDS: DIVALPROEX SODIUM 500 MG TABLET E.C. PO SCH ×2 (11:02→22:40)
[2022-07-28] MEDS: chlordiazePOXIDE HCL 25 MG CAPSULE PO SCH ×3 (11:02→22:41)
[2022-07-28] MEDS: BENZTROPINE MESYLATE 1 MG TABLET PO SCH ×2 (11:02→22:40)
[2022-07-28 11:33] LABS: HEMOGLOBIN 13.7 GM/dL (11.7-16.9); MCH 31.3 pg (25.7-33.7); MCHC 33.4 g/dl (32.0-35.9); MEAN CELL VOLUME 93.8 fl (80-96); MEAN PLT VOLUME 9.8 fl (7.5-11.1); PLATELET COUNT 241 10^3/uL (134-434); RBC 4.37 M/mm3 (4.00-5.60); RDW 13.6 % (11.9-15.9); WHITE BLOOD COUNT 6.4 K/mm3 (4.0-10.0)
[2022-07-28] MEDS: BACITRACIN 0.9 GM PACKET TP SCH ×2 (11:44→22:40)
[2022-07-28 11:51] LABS: ALBUMIN 2.9 g/dl (3.4-5.0); CALCIUM 8.7 mg/dL (8.5-10.1)
[2022-07-28 11:52] LABS: BLOOD UREA NITROGEN 14.8 mg/dL (7-18)
[2022-07-28 11:53] LABS: CREATININE 0.9 mg/dL (0.55-1.3)
[2022-07-28 11:55] LABS: BILIRUBIN,TOTAL 0.7 mg/dL (0.2-1); TOT PROT 6.5 g/dl (6.4-8.2)
[2022-07-28] MEDS ORDERED: cloNIDine HCL 0.1 MG TABLET PO ONE (15:00)
[2022-07-28] MEDS: IBUPROFEN 600 MG TABLET (FP) PO PRN (17:35)
[2022-07-28] MEDS: THIAMINE HCL 100 MG TABLET (FP) PO SCH (22:40)
[2022-07-28] MEDS: risperiDONE 2 MG TABLET PO SCH (22:40)
[2022-07-29] MEDS: MELATONIN 5 MG TABLETS PO PRN ×2 (00:44→23:53)
[2022-07-29] MEDS: hydrOXYzine PAMOATE 25 MG CAPSULE (FP) PO PRN (00:44)
[2022-07-29] MEDS: chlordiazePOXIDE HCL 25 MG CAPSULE PO SCH ×4 (05:17→22:00)
[2022-07-29] MEDS: PRENATAL VITAMINS W/ FOLIC ACID TABLET (FP) PO SCH (10:03)
[2022-07-29] MEDS: BENZTROPINE MESYLATE 1 MG TABLET PO SCH ×2 (10:03→21:51)
[2022-07-29] MEDS: DIVALPROEX SODIUM 500 MG TABLET E.C. PO SCH ×2 (10:03→21:51)
[2022-07-29] MEDS: IBUPROFEN 600 MG TABLET (FP) PO PRN (10:03)
[2022-07-29] MEDS: BACITRACIN 0.9 GM PACKET TP SCH ×2 (10:03→21:51)
[2022-07-29] MEDS ORDERED: LACTULOSE 20 GM/30 ML UDC (FOR ORAL USE ONLY) PO ONE (21:25)
[2022-07-29] MEDS: risperiDONE 2 MG TABLET PO SCH (21:51)
[2022-07-29] MEDS: THIAMINE HCL 100 MG TABLET (FP) PO SCH (21:51)
[2022-07-30] MEDS ORDERED: LACTULOSE 20 GM/30 ML UDC (FOR ORAL USE ONLY) PO ONE (00:58)
[2022-07-30] MEDS: chlordiazePOXIDE HCL 25 MG CAPSULE PO SCH ×3 (06:04→17:28)
[2022-07-30] MEDS: ALBUTEROL SO4 HFA INHALER IH PRN ×2 (06:41→23:00)
[2022-07-30] MEDS: DIVALPROEX SODIUM 500 MG TABLET E.C. PO SCH ×2 (09:55→22:59)
[2022-07-30] MEDS: BENZTROPINE MESYLATE 1 MG TABLET PO SCH ×2 (09:55→22:59)
[2022-07-30] MEDS: PRENATAL VITAMINS W/ FOLIC ACID TABLET (FP) PO SCH (09:55)
[2022-07-30] MEDS: BACITRACIN 0.9 GM PACKET TP SCH ×2 (09:55→22:59)
[2022-07-30] MEDS: LACTULOSE 20 GM/30 ML UDC (FOR ORAL USE ONLY) PO SCH ×4 (10:32→22:59)
[2022-07-30] MEDS: risperiDONE 2 MG TABLET PO SCH (22:59)
[2022-07-30] MEDS: THIAMINE HCL 100 MG TABLET (FP) PO SCH (22:59)
[2022-07-31] MEDS ORDERED: chlordiazePOXIDE HCL 10 MG CAPSULE PO PRN
[2022-07-31] MEDS: chlordiazePOXIDE HCL 25 MG CAPSULE PO SCH (00:05)
[2022-07-31] MEDS: chlordiazePOXIDE HCL 10 MG CAPSULE PO SCH ×4 (06:07→22:43)
[2022-07-31] MEDS: LACTULOSE 20 GM/30 ML UDC (FOR ORAL USE ONLY) PO SCH ×4 (10:48→22:43)
[2022-07-31] MEDS: BACITRACIN 0.9 GM PACKET TP SCH ×2 (10:49→22:43)
[2022-07-31] MEDS: BENZTROPINE MESYLATE 1 MG TABLET PO SCH ×2 (10:49→22:43)
[2022-07-31] MEDS: DIVALPROEX SODIUM 500 MG TABLET E.C. PO SCH ×2 (10:49→22:43)
[2022-07-31] MEDS: PRENATAL VITAMINS W/ FOLIC ACID TABLET (FP) PO SCH (10:49)
[2022-07-31] MEDS: risperiDONE 2 MG TABLET PO SCH (22:42)
[2022-07-31] MEDS: THIAMINE HCL 100 MG TABLET (FP) PO SCH (22:42)
[2022-07-31] MEDS: ALBUTEROL SO4 HFA INHALER IH PRN (22:48)
[2022-08-01] MEDS: chlordiazePOXIDE HCL 10 MG CAPSULE PO SCH ×2 (05:47→17:36)
[2022-08-01] MEDS: IBUPROFEN 600 MG TABLET (FP) PO PRN ×2 (06:49→22:48)
[2022-08-01] MEDS: PRENATAL VITAMINS W/ FOLIC ACID TABLET (FP) PO SCH (10:22)
[2022-08-01] MEDS: BENZTROPINE MESYLATE 1 MG TABLET PO SCH ×2 (10:23→22:40)
[2022-08-01] MEDS: DIVALPROEX SODIUM 500 MG TABLET E.C. PO SCH ×2 (10:23→22:40)
[2022-08-01] MEDS: LACTULOSE 20 GM/30 ML UDC (FOR ORAL USE ONLY) PO SCH ×4 (10:23→22:40)
[2022-08-01] MEDS: BACITRACIN 0.9 GM PACKET TP SCH ×2 (10:23→22:40)
[2022-08-01] MEDS: ALBUTEROL SO4 HFA INHALER IH PRN (22:35)
[2022-08-01] MEDS: risperiDONE 2 MG TABLET PO SCH (22:39)
[2022-08-01] MEDS: THIAMINE HCL 100 MG TABLET (FP) PO SCH (22:40)
[2022-08-01 23:44] VITALS: BP 127/70
[2022-08-02] MEDS ORDERED: ALBUTEROL SO4 2.5/IPRATROPIUM 0.5 INH SOL 3 ML VIAL.NEB. NEB ONE ×2 (00:42→00:45)
[2022-08-02] MEDS ORDERED: AZITHROMYCIN 500 MG TABLET PO ONE (01:06)
[2022-08-02 01:08] VITALS: PULSE 106; RESP 18; TEMP 98.4
[2022-08-02] MEDS ORDERED: chlordiazePOXIDE HCL 10 MG CAPSULE PO ONE (05:00)
[2022-08-02] MEDS: BACITRACIN 0.9 GM PACKET TP SCH (10:33)
[2022-08-02] MEDS: LACTULOSE 20 GM/30 ML UDC (FOR ORAL USE ONLY) PO SCH (10:33)
[2022-08-02] MEDS: PRENATAL VITAMINS W/ FOLIC ACID TABLET (FP) PO SCH (10:34)
[2022-08-02] MEDS: DIVALPROEX SODIUM 500 MG TABLET E.C. PO SCH (10:34)
[2022-08-02] MEDS: BENZTROPINE MESYLATE 1 MG TABLET PO SCH (10:34)
[2022-08-03] MEDS ORDERED: AZITHROMYCIN 250 MG TABLET PO SCH (10:00)
== END 2022-08-02 12:48 | disposition short-term general hospital (02) | DRG 775 ==
LOC: YASAS 18:47 → Y6N 23:30
PROVIDERS: ADMIT Allergy & Immunology; ATTEND Surgery
PROC: HZ2ZZZZ Detoxification Services for Substance Abuse Treatment (ICD-10-PCS; principal; 2022-07-27)
DX: F10.230 Alcohol dependence with withdrawal, uncomplicated (principal); F12.20 Cannabis dependence, uncomplicated; F17.210 Nicotine dependence, cigarettes, uncomplicated; F20.9 Schizophrenia, unspecified; F10.282 Alcohol dependence with alcohol-induced sleep disorder; R09.02 Hypoxemia; R05.9 Cough, unspecified; R79.89 Other specified abnormal findings of blood chemistry; R41.82 Altered mental status, unspecified; Z62.810 Personal history of physical and sexual abuse in childhood
CPT/HCPCS: 36415; 71045-TC-FY; 73070-TC-LT-FY; 73090-TC-LT-FY; 80053; 80164; 82140; 83036; 85027; 86780; 94640; C9803-CS; U0003; U0005

== ENCOUNTER 2022-08-02 02:19 | Observation (INO) | payer OTHER ==
[2022-08-02] MEDS ORDERED: VANCOMYCIN 1,000 MG in DEXTROSE 5%-WATER - 250 ML IVPB ONE (03:14)
[2022-08-02] MEDS ORDERED: CLINDAMYCIN 600MG PREMIX IVPB 600 MG/50 ML BAG IVPB ONE ×2 (03:16→03:25)
[2022-08-02] MEDS ORDERED: VANCOMYCIN/WATER FOR INJ (PEG) 1,000 MG/200 ML BAG IVPB ONE (03:25)
[2022-08-02] MEDS: PIPERACILLIN/TAZOB 3.375 GM 3.375 GM in DEXTROSE 5%-WATER - 50 ML IVPB ONE ×2 (03:26→04:15)
[2022-08-02] MEDS ORDERED: PIPERACILLIN/TAZOB 3.375 GM 3.375 GM/50 ML BAG IVPB ONE (03:26)
[2022-08-02 04:05] LABS: BASO % 0.3 % (0-2.0); EOS % 3.6 % (0-4.5); HEMATOCRIT 35.4 % (35.4-49); HEMOGLOBIN 11.9 GM/dL (11.7-16.9); LYMPH % 9.9 % (8-40); MCH 31.4 pg (25.7-33.7); MCHC 33.7 g/dl (32.0-35.9); MEAN CELL VOLUME 93.2 fl (80-96); MEAN PLT VOLUME 9.2 fl (7.5-11.1); MONO % 12.5 % (3.8-10.2); NEUT % 73.7 % (42.8-82.8); PLATELET COUNT 234 10^3/uL (134-434); RDW 13.4 % (11.9-15.9); WHITE BLOOD COUNT 7.9 K/mm3 (4.0-10.0)
[2022-08-02 04:17] LABS: INR 1.02 (0.83-1.09); PROTHROMBIN TIME (PATIENT) 11.8 SEC (9.7-13.0)
[2022-08-02 04:20] LABS: VENOUS BASE EXCESS 2.4 mmol/L (-2-2); VENOUS O2 SATURATION 93.7 % (70-80); VENOUS PCO2 56.6 mmHg (38-52); VENOUS PH 7.334 (7.310-7.410)
[2022-08-02 04:23] LABS: ALBUMIN 2.6 g/dl (3.4-5.0); BLOOD UREA NITROGEN 15.4 mg/dL (7-18); CALCIUM 8.8 mg/dL (8.5-10.1)
[2022-08-02] MEDS ORDERED: MIDAZOLAM HCL 2 MG/2 ML SINGLE DOSE VIAL ONE (04:24)
[2022-08-02] MEDS ORDERED: FENTANYL CITRATE/PF 50 MCG/ML VIAL ONE (04:25)
[2022-08-02 04:26] LABS: CREATININE 0.8 mg/dL (0.55-1.3)
[2022-08-02 04:28] LABS: BILIRUBIN,TOTAL 0.7 mg/dL (0.2-1); TOT PROT 6.2 g/dl (6.4-8.2)
[2022-08-02] MEDS ORDERED: MIDAZOLAM HCL 2 MG/2 ML SINGLE DOSE VIAL IVPUSH ONE (04:42)
[2022-08-02] MEDS ORDERED: methylPREDNISolone NA SUCC 125 MG/2 ML VIAL IVPB ONE (09:47)
[2022-08-02] MEDS ORDERED: ALBUTEROL SO4 2.5/IPRATROPIUM 0.5 INH SOL 3 ML VIAL.NEB. NEB ONE ×2 (09:47→10:13)
[2022-08-02] MEDS ORDERED: methylPREDNISolone NA SUCC 125 MG/2 ML VIAL ONE (10:13)
[2022-08-02] MEDS ORDERED: ALBUTEROL SO4 0.083% IH SOL 2.5 MG/3 ML VIAL.NEB. NEB PRN (11:57)
[2022-08-02] MEDS ORDERED: ALBUTEROL SO4 2.5/IPRATROPIUM 0.5 INH SOL 3 ML VIAL.NEB. NEB SCH (12:15)
[2022-08-02 12:21] VITALS: BMI 24.2
[2022-08-02] MEDS ORDERED: AMPICILLIN NA/SULBACTAM NA 1.5 GM in SODIUM CHLORIDE 100 ML IVPB SCH (12:30)
[2022-08-02] MEDS ORDERED: LORazepam 2 MG/ML SDV VIAL IVPUSH PRN (12:54)
[2022-08-02] MEDS: predniSONE 20 MG TABLET (UD) PO SCH (13:19)
[2022-08-02] MEDS: AMPICILLIN NA/SULBACTAM NA 1.5 GM in SODIUM CHLORIDE 100 ML IVPB SCH ×3 (13:20→19:01)
[2022-08-02] MEDS: ALBUTEROL SO4 2.5/IPRATROPIUM 0.5 INH SOL 3 ML VIAL.NEB. NEB SCH ×2 (15:10→20:29)
[2022-08-02] MEDS: risperiDONE 1 MG TABLET PO SCH (21:18)
[2022-08-02] MEDS: DIVALPROEX SODIUM 500 MG TABLET E.C. PO SCH (21:18)
[2022-08-02] MEDS: BENZTROPINE MESYLATE 1 MG TABLET PO SCH (21:20)
[2022-08-03] MEDS: AMPICILLIN NA/SULBACTAM NA 1.5 GM in SODIUM CHLORIDE 100 ML IVPB SCH ×3 (01:14→17:43)
[2022-08-03 08:04] LABS: HEMATOCRIT 33.7 % (35.4-49); HEMOGLOBIN 11.2 GM/dL (11.7-16.9); MCH 31.4 pg (25.7-33.7); MCHC 33.2 g/dl (32.0-35.9); MEAN CELL VOLUME 94.6 fl (80-96); MEAN PLT VOLUME 9.3 fl (7.5-11.1); PLATELET COUNT 242 10^3/uL (134-434); RBC 3.57 M/mm3 (4.00-5.60); RDW 13.2 % (11.9-15.9); WHITE BLOOD COUNT 9.8 K/mm3 (4.0-10.0)
[2022-08-03] MEDS: ALBUTEROL SO4 2.5/IPRATROPIUM 0.5 INH SOL 3 ML VIAL.NEB. NEB SCH ×4 (08:10→20:39)
[2022-08-03 08:17] LABS: CALCIUM 8.6 mg/dL (8.5-10.1)
[2022-08-03 08:18] LABS: ALBUMIN 2.3 g/dl (3.4-5.0); BLOOD UREA NITROGEN 21.1 mg/dL (7-18)
[2022-08-03 08:21] LABS: CREATININE 0.7 mg/dL (0.55-1.3)
[2022-08-03 08:23] LABS: BILIRUBIN,TOTAL 0.4 mg/dL (0.2-1); TOT PROT 5.8 g/dl (6.4-8.2)
[2022-08-03] MEDS: predniSONE 20 MG TABLET (UD) PO SCH (10:13)
[2022-08-03] MEDS: BENZTROPINE MESYLATE 1 MG TABLET PO SCH ×2 (10:13→21:06)
[2022-08-03] MEDS: DIVALPROEX SODIUM 500 MG TABLET E.C. PO SCH ×2 (10:14→21:06)
[2022-08-03] MEDS: ENOXAPARIN NA (PORCINE) 40 MG/0.4 ML DISP.SYRIN SQ SCH (10:15)
[2022-08-03] MEDS: risperiDONE 1 MG TABLET PO SCH (21:06)
[2022-08-04] MEDS: AMPICILLIN NA/SULBACTAM NA 1.5 GM in SODIUM CHLORIDE 100 ML IVPB SCH ×3 (01:36→18:10)
[2022-08-04] MEDS: ALBUTEROL SO4 2.5/IPRATROPIUM 0.5 INH SOL 3 ML VIAL.NEB. NEB SCH ×4 (08:05→22:20)
[2022-08-04] MEDS: predniSONE 20 MG TABLET (UD) PO SCH (09:14)
[2022-08-04] MEDS: ENOXAPARIN NA (PORCINE) 40 MG/0.4 ML DISP.SYRIN SQ SCH ×2 (09:14→09:26)
[2022-08-04] MEDS: BENZTROPINE MESYLATE 1 MG TABLET PO SCH ×2 (09:15→21:37)
[2022-08-04] MEDS: DIVALPROEX SODIUM 500 MG TABLET E.C. PO SCH ×2 (09:15→21:37)
[2022-08-04] MEDS: risperiDONE 1 MG TABLET PO SCH (21:37)
[2022-08-05] MEDS: ACETAMINOPHEN 325 MG TABLET (FP) PO PRN ×2 (06:22→21:33)
[2022-08-05] MEDS: ALBUTEROL SO4 2.5/IPRATROPIUM 0.5 INH SOL 3 ML VIAL.NEB. NEB SCH ×4 (07:14→21:06)
[2022-08-05] MEDS: AMOX TR/POT CLAV 500MG/125MG TABLETS (FP) PO SCH ×2 (08:17→17:25)
[2022-08-05 08:34] LABS: BASO % 0.6 % (0-2.0); EOS % 1.6 % (0-4.5); HEMATOCRIT 33.2 % (35.4-49); HEMOGLOBIN 11.2 GM/dL (11.7-16.9); LYMPH % 21.6 % (8-40); MCH 31.7 pg (25.7-33.7); MCHC 33.7 g/dl (32.0-35.9); MEAN CELL VOLUME 94.2 fl (80-96); MEAN PLT VOLUME 8.9 fl (7.5-11.1); MONO % 16.2 % (3.8-10.2); PLATELET COUNT 295 10^3/uL (134-434); RBC 3.52 M/mm3 (4.00-5.60); RDW 13.1 % (11.9-15.9); WHITE BLOOD COUNT 7.5 K/mm3 (4.0-10.0)
[2022-08-05] MEDS: predniSONE 20 MG TABLET (UD) PO SCH (09:14)
[2022-08-05] MEDS: BENZTROPINE MESYLATE 1 MG TABLET PO SCH ×2 (09:14→21:33)
[2022-08-05] MEDS: DIVALPROEX SODIUM 500 MG TABLET E.C. PO SCH ×2 (09:15→21:33)
[2022-08-05] MEDS: ENOXAPARIN NA (PORCINE) 40 MG/0.4 ML DISP.SYRIN SQ SCH (09:17)
[2022-08-05 09:39] LABS: ALBUMIN 2.3 g/dl (3.4-5.0); BILIRUBIN,TOTAL 0.4 mg/dL (0.2-1); BLOOD UREA NITROGEN 24.2 mg/dL (7-18); CALCIUM 8.8 mg/dL (8.5-10.1); CREATININE 0.8 mg/dL (0.55-1.3)
[2022-08-05] MEDS: risperiDONE 1 MG TABLET PO SCH (21:33)
[2022-08-06] MEDS: ACETAMINOPHEN 325 MG TABLET (FP) PO PRN ×2 (05:00→21:28)
[2022-08-06] MEDS: ALBUTEROL SO4 2.5/IPRATROPIUM 0.5 INH SOL 3 ML VIAL.NEB. NEB SCH ×4 (07:43→20:05)
[2022-08-06 09:09] LABS: HEMATOCRIT 35.4 % (35.4-49); HEMOGLOBIN 11.9 GM/dL (11.7-16.9); MCH 31.3 pg (25.7-33.7); MCHC 33.6 g/dl (32.0-35.9); MEAN CELL VOLUME 92.9 fl (80-96); MEAN PLT VOLUME 9.1 fl (7.5-11.1); PLATELET COUNT 318 10^3/uL (134-434); RBC 3.81 M/mm3 (4.00-5.60); RDW 12.8 % (11.9-15.9)
[2022-08-06] MEDS: AMOX TR/POT CLAV 500MG/125MG TABLETS (FP) PO SCH ×2 (09:13→17:04)
[2022-08-06] MEDS: BENZTROPINE MESYLATE 1 MG TABLET PO SCH ×2 (09:14→21:30)
[2022-08-06] MEDS: predniSONE 20 MG TABLET (UD) PO SCH (09:14)
[2022-08-06] MEDS: DIVALPROEX SODIUM 500 MG TABLET E.C. PO SCH ×2 (09:14→21:28)
[2022-08-06] MEDS: ENOXAPARIN NA (PORCINE) 40 MG/0.4 ML DISP.SYRIN SQ SCH (09:17)
[2022-08-06 09:45] LABS: CALCIUM 9.1 mg/dL (8.5-10.1); MAGNESIUM 1.8 mg/dL (1.8-2.4)
[2022-08-06 09:47] LABS: CREATININE 0.8 mg/dL (0.55-1.3)
[2022-08-06 09:48] LABS: PHOSPHOROUS 4.3 mg/dL (2.5-4.9)
[2022-08-06] MEDS: risperiDONE 1 MG TABLET PO SCH (21:30)
[2022-08-07] MEDS: ACETAMINOPHEN 325 MG TABLET (FP) PO PRN ×2 (05:39→12:34)
[2022-08-07] MEDS: ALBUTEROL SO4 2.5/IPRATROPIUM 0.5 INH SOL 3 ML VIAL.NEB. NEB SCH ×4 (08:05→20:49)
[2022-08-07] MEDS: BENZTROPINE MESYLATE 1 MG TABLET PO SCH ×2 (10:26→22:13)
[2022-08-07] MEDS: ENOXAPARIN NA (PORCINE) 40 MG/0.4 ML DISP.SYRIN SQ SCH (10:26)
[2022-08-07] MEDS: DIVALPROEX SODIUM 500 MG TABLET E.C. PO SCH ×2 (10:26→22:13)
[2022-08-07 10:53] LABS: HEMATOCRIT 37.2 % (35.4-49); HEMOGLOBIN 12.4 GM/dL (11.7-16.9); MCH 31.2 pg (25.7-33.7); MCHC 33.2 g/dl (32.0-35.9); MEAN CELL VOLUME 93.9 fl (80-96); MEAN PLT VOLUME 9.2 fl (7.5-11.1); PLATELET COUNT 339 10^3/uL (134-434); RBC 3.96 M/mm3 (4.00-5.60); RDW 12.9 % (11.9-15.9); WHITE BLOOD COUNT 7.3 K/mm3 (4.0-10.0)
[2022-08-07 11:25] LABS: CALCIUM 9.3 mg/dL (8.5-10.1)
[2022-08-07 11:26] LABS: ALBUMIN 2.6 g/dl (3.4-5.0); BLOOD UREA NITROGEN 27.6 mg/dL (7-18); MAGNESIUM 1.8 mg/dL (1.8-2.4)
[2022-08-07 11:28] LABS: PHOSPHOROUS 4.8 mg/dL (2.5-4.9)
[2022-08-07 11:29] LABS: BILIRUBIN,TOTAL 0.5 mg/dL (0.2-1); CREATININE 0.9 mg/dL (0.55-1.3); TOT PROT 6.5 g/dl (6.4-8.2)
[2022-08-07 14:14] VITALS: RESP 18
[2022-08-07] MEDS: risperiDONE 1 MG TABLET PO SCH (22:13)
[2022-08-08] MEDS: ALBUTEROL SO4 2.5/IPRATROPIUM 0.5 INH SOL 3 ML VIAL.NEB. NEB SCH ×4 (07:50→20:15)
[2022-08-08] MEDS: ENOXAPARIN NA (PORCINE) 40 MG/0.4 ML DISP.SYRIN SQ SCH (09:14)
[2022-08-08] MEDS: BENZTROPINE MESYLATE 1 MG TABLET PO SCH ×2 (09:14→21:02)
[2022-08-08] MEDS: DIVALPROEX SODIUM 500 MG TABLET E.C. PO SCH ×2 (09:14→21:02)
[2022-08-08] MEDS: ACETAMINOPHEN 325 MG TABLET (FP) PO PRN ×3 (09:14→23:22)
[2022-08-08] MEDS: risperiDONE 1 MG TABLET PO SCH (21:02)
[2022-08-09] MEDS: ACETAMINOPHEN 325 MG TABLET (FP) PO PRN ×3 (04:42→21:04)
[2022-08-09] MEDS: ALBUTEROL SO4 2.5/IPRATROPIUM 0.5 INH SOL 3 ML VIAL.NEB. NEB SCH ×4 (08:50→19:59)
[2022-08-09] MEDS: ENOXAPARIN NA (PORCINE) 40 MG/0.4 ML DISP.SYRIN SQ SCH (09:49)
[2022-08-09] MEDS: BENZTROPINE MESYLATE 1 MG TABLET PO SCH ×2 (09:49→21:04)
[2022-08-09] MEDS: DIVALPROEX SODIUM 500 MG TABLET E.C. PO SCH ×2 (09:49→21:04)
[2022-08-09] MEDS: risperiDONE 1 MG TABLET PO SCH (21:04)
[2022-08-09 23:21] VITALS: BP 131/72; PULSE 87; TEMP 97.1
[2022-08-10] MEDS: ALBUTEROL SO4 2.5/IPRATROPIUM 0.5 INH SOL 3 ML VIAL.NEB. NEB SCH ×2 (07:18→11:03)
[2022-08-10] MEDS: ACETAMINOPHEN 325 MG TABLET (FP) PO PRN (09:05)
[2022-08-10] MEDS: BENZTROPINE MESYLATE 1 MG TABLET PO SCH (09:05)
[2022-08-10] MEDS: DIVALPROEX SODIUM 500 MG TABLET E.C. PO SCH (09:05)
[2022-08-28] MEDS ORDERED: HALOPERIDOL DECANOATE 500 MG/5ML MDV IM SCH (10:00)
== END 2022-08-10 14:42 | disposition home or self-care (01) ==
LOC: JER 02:19 → JERBED 10:29 → J6S 11:47
PROVIDERS: ADMIT Internal Medicine; ATTEND Internal Medicine
PROC: 0RSMXZZ Reposition Left Elbow Joint, External Approach (ICD-10-PCS; principal; 2022-08-02)
PROC: 3E03329 Introduction of Other Anti-infective into Peripheral Vein, Percutaneous Approach (ICD-10-PCS; 2022-08-02)
PROC: 3E03329 Introduction of Other Anti-infective into Peripheral Vein, Percutaneous Approach (ICD-10-PCS; 2022-08-02)
PROC: 3E0F7SF Introduction of Other Gas into Respiratory Tract, Via Natural or Artificial Opening (ICD-10-PCS; 2022-08-02)
DX: J96.01 Acute respiratory failure with hypoxia (principal); J96.02 Acute respiratory failure with hypercapnia; J43.8 Other emphysema; J44.1 Chronic obstructive pulmonary disease with (acute) exacerbation; S53.105D Unspecified dislocation of left ulnohumeral joint, subsequent encounter; S41.102D Unspecified open wound of left upper arm, subsequent encounter; L03.114 Cellulitis of left upper limb; M79.89 Other specified soft tissue disorders; F17.210 Nicotine dependence, cigarettes, uncomplicated; R00.0 Tachycardia, unspecified; F10.20 Alcohol dependence, uncomplicated; G92.8 Other toxic encephalopathy; F20.9 Schizophrenia, unspecified; R29.6 Repeated falls; R26.81 Unsteadiness on feet; F39 Unspecified mood [affective] disorder; J18.9 Pneumonia, unspecified organism; R73.9 Hyperglycemia, unspecified; E27.8 Other specified disorders of adrenal gland; F12.90 Cannabis use, unspecified, uncomplicated; W19.XXXD Unspecified fall, subsequent encounter
CPT/HCPCS: 0241U-QW; 36415; 70450-TC; 71275-TC; 73060-TC-LT-FY; 73070-TC-LT-FY; 73090-TC-LT-FY; 73110-TC-LT-FY; 73130-TC-LT-FY; 80048; 80053; 82607; 82746; 82803; 83036; 83605; 83735; 84100; 84443; 85025; 85027; 85610; 87040; 93005; 93010; 94010; 94640; 96365; 96368; 96375; 97116-GP; 97161-GP; 99285-25; G0378